=== PATIENT | female | born 1950 | race Native Hawaiian/Other Pacific Islander ===

== ENCOUNTER 2016-12-23 09:15 | Emergency (ER) | payer OTHER, MEDICAID ==
[~2016-12-23] VITALS: Ht 160 cm; Wt 63.5 kg
[2016-12-23 09:16] VITALS: BP 179/82; PULSE 70; RESP 20; TEMP 98.6; O2SAT 98
[2016-12-23] MEDS ORDERED: METF1000 PO (09:42)
--- NOTE | 2016-12-23 09:43 | PD ---
HPI Chief Complaint: Fall Time Seen by Provider: 09:38 Travel History International Travel<30 days: No Contact w/Intl Traveler<30days: No Traveled to known affect area: No History of Present Illness HPI The patient is a 65-year-old female who presents to the emergency department after a trip and fall. The patient states she was running to the bus stop earlier today, when she tripped over uneven pavement and subsequent fell on the hard pavement. The patient complains of pain located over the interphalangeal joint of the thumb, lateral malleus of the left ankle, and an abrasion of the anterior aspect of the right knee. The patient is able to bear weight, but has pain with weightbearing of the left ankle and right knee. She does note previous bilateral knee replacements. Patient is unsure when her last tetanus shot was updated. The patient denies a loss of consciousness, head pain, neck pain, chest pain, palpitations, shortness breath , nausea, vomiting, or syncope. PFSH Past Medical History Narrative Medical Hypertension, hyperlipidemia, diabetes Diabetes: Yes Past Surgical History Narrative Surgical Bilateral knee surgeries Social History Tobacco Use: Yes Allergies-Medications (Allergen,Severity, Reaction): Coded Allergies: Codeine (Verified Allergy, Severe, Nausea/Vomiting, 12/23/16) Darvocet-N 100 (Verified Allergy, Severe, Nausea/Vomiting, 12/23/16) Lortab (Verified Allergy, Severe, Nausea/Vomiting, 12/23/16) Reported Meds & Prescriptions Reported Meds & Active Scripts Active Reported Lisinopril 5 Mg Tab 5 Mg PO DAILY Losartan (Losartan Potassium) 25 Mg Tab 25 Mg PO DAILY Metformin (Metformin HCl) 1,000 Mg Tab 1,000 Mg PO BIDPC With meals Review of Systems Except as stated in HPI: all other systems reviewed are Neg General / Constitutional: No: Fever Eyes: No: Visual changes HENT: No: Headaches, Neck Pain Cardiovascular: No: Chest Pain or Discomfort, Palpitations, Syncope Respiratory: No: Shortness of Breath Gastrointestinal: No: Nausea, Vomiting, Abdominal Pain Musculoskeletal: Positive: Pain Skin: Positive Other (abrasion) Neurologic: No: Dizziness Physical Exam Narrative GENERAL: Awake, alert, very pleasant 65-year-old female who appears her stated age and is in no acute respiratory distress. SKIN: Focused skin assessment warm/dry. Abrasion over the anterior aspect of the right knee. Well-healed midline scar over the left and right knee. Superficial abrasion over the extensor surface of the interphalangeal joint of the left thumb. HEAD: Atraumatic. Normocephalic. EYES: Pupils equal and round. No scleral icterus. No injection or drainage. ENT: No injection or drainage. NECK: Trachea midline. No JVD. MUSCULOSKELETAL: Well-healed scar over the midline and left and right knee. Superficial abrasion measuring 1.5 cm in diameter over the extensor surface of the right knee. Patient is able flex and extend the knees bilaterally 90, she is able to bear weight on both legs. Mild edema over the lateral left malleus with minimal tenderness. No tenderness of the base of the fourth and fifth metatarsal. Superficial abrasion noted over the extensor surface of the interphalangeal joint of the left thumb. Intrinsic hand muscles are intact the left and right hand. Patient is able fully flex and extend the left and right wrist as well as supinate and pronate the forearms bilaterally. No tenderness of the clavicle. Positive radial pulses bilaterally. There is palpation of the interphalangeal joint of the left thumb. NEUROLOGICAL: Awake and alert. No obvious cranial nerve deficits. Motor grossly within normal limits. Normal speech. Nonfocal. Oriented 4. Follows commands without difficulty. PSYCHIATRIC: Appropriate mood and affect; insight and judgment normal. Data Data Last Documented VS Vital Signs Date Time Temp Pulse Resp B/P Pulse Ox O2 Delivery O2 Flow Rate FiO2 12/23/16 09:16 98.6 70 20 179/82 98 Room Air Orders Tetanus/Diphtheria Tox Adult (Tetanus/Di (12/23/16 09:45) Acetaminophen (Tylenol) (12/23/16 09:45) Finger (Vqg1otf) (12/23/16 ) Knee, Ltd (1 Or 2vws) (12/23/16 ) Ankle, Limited (Ap&Lat) (12/23/16 ) MDM Medical Decision Making Medical Screen Exam Complete: Yes Emergency Medical Condition: Yes Medical Record Reviewed: Yes Interpretation(s) Last Impressions Knee X-Ray 12/23/16 0000 Signed Impressions: Service Date/Time: Friday, December 23, 2016 10:14 - CONCLUSION: Small joint effusion. Otherwise, no acute abnormality. Colin David Jr., MD Ankle X-Ray 12/23/16 0000 Signed Impressions: Service Date/Time: Friday, December 23, 2016 10:15 - CONCLUSION: There is a linear lucency seen involving the navicular bone along its dorsal aspect. I cannot completely exclude a small avulsion fracture off the dorsum. Clinical evaluation for any point tenderness in this area suggested. Otherwise, degenerative changes. Colin David Jr., MD X-ray of the thumb reveals a moderately displaced primarily transverse fracture involving the thumb distal phalanx in the proximal diaphyseal region with very slight palmar displacement of the dominant distal fragment. The interphalangeal joint appears intact. At the metacarpal phalangeal joint an epiphyseal fracture extends to the palmar aspect of the joint space. Minimal displacement of the tiny minor fragment. Differential Diagnosis Differential diagnosis includes mechanical fall, fracture, dislocation, contusion, hematoma, sprain, strain, abrasion, laceration. Narrative Course Limited x-ray of the right knee, left ankle, and left thumb were obtained. The patient's tetanus shot was updated. The patient was administered Tylenol orally for pain. X-ray of the left thumb is positive for 2 fractures, therefore , patient was placed in a thumb spica. Patient has an avulsion fracture over the dorsal aspect of the right foot, therefore, was placed in a short posterior leg splint. The patient will be provided crutches with her splint, Motrin as needed for pain, and is advised to elevate, ice, and activity as tolerated. Patient is advised to follow-up with orthopedics. Diagnosis Primary Impression: Fracture of thumb, left, closed Qualified Code: S62.502A - Closed displaced fracture of phalanx of left thumb , unspecified phalanx, initial encounter Additional Impression: Foot, fracture, navicular Qualified Code: S92.255A - Closed nondisplaced fracture of navicular bone of left foot, initial encounter Patient Instructions: General Instructions Additional Instructions: Wound care instructions. Clean the abrasions twice a day with soap and water, monitor for signs of infection. Tylenol and/or Motrin as needed for pain. Elevate, ice, activity as tolerated. Splints as directed. Follow-up with orthopedics. Med/Other Pt SpecificInfo: Prescription(s) given Scripts Ibuprofen 600 Mg Set993 Mg PO Q6H PRN (Pain/Inflammation) #20 TAB Ref 0 Prov:Evangelist Jennings MD 12/23/16 Disposition: 01 DISCHARGE HOME Condition: Stable Evangelist Jennings MD December 23, 2016 09:43
[2016-12-23] MEDS ORDERED: LISI-519 PO (09:44)
[2016-12-23] MEDS ORDERED: LOSA25TA PO (09:44)
[2016-12-23] MEDS ORDERED: ACETAMINOPHEN 325 MG TAB PO ONE (09:45)
[2016-12-23] MEDS ORDERED: TETANUS/DIPHTHERIA TOXOID ADULT 0.5 ML VIAL IM ONE (09:45)
--- NOTE | 2016-12-23 10:27 | RADRPT ---
EXAM DATE/TIME: 12/23/2016 10:14 [facility] COMPARISON: No previous studies available for comparison. INDICATIONS : Patient states she fell this morning, right knee pain. MEDICAL HISTORY : None. SURGICAL HISTORY : Total knee replacement, right. ENCOUNTER: Initial ACUITY: 1 day PAIN SCORE: 4/10 LOCATION: Right Knee FINDINGS: 2 views of the knee show a total knee prosthesis in good position. No fracture or dislocation is obse rved. No soft tissue swelling is noted. A small joint effusion is seen. CONCLUSION: Small joint effusion. Otherwise, no acute abnormality. Colin David Jr., MD on December 23, 2016 at 10:23 Board Certified Radiologist. This report was verified electronically.
--- NOTE | 2016-12-23 10:32 | RADRPT ---
EXAM DATE/TIME: 12/23/2016 10:15 [facility] COMPARISON: No previous studies available for comparison. INDICATIONS : Patient states she fell this morning, left ankle pain. MEDICAL HISTORY : None. SURGICAL HISTORY : None. ENCOUNTER: Initial ACUITY: 1 day PAIN SCORE: 4/10 LOCATION: Left Ankle FINDINGS: 2 views of the ankle reveal a linear lucency involving the dorsum of the navicular bone. This is only seen on the lateral projection. Degenerative changes are noted within the midfoot. The remaining bon y structures are unremarkable. Spurring of the calcaneus. No soft tissue swelling. CONCLUSION: There is a linear lucency seen involving the navicular bone along its dorsal aspect. I cannot complet misty exclude a small avulsion fracture off the dorsum. Clinical evaluation for any point tenderness in this area suggested. Otherwise, degenerative changes. Colin David Jr., MD on December 23, 2016 at 10:25 Board Certified Radiologist. This report was verified electronically.
--- NOTE | 2016-12-23 10:42 | RADRPT ---
EXAM DATE/TIME: 12/23/2016 10:05 [facility] COMPARISON: No previous studies available for comparison. INDICATIONS : Patient states she fell this morning, left thumb pain. MEDICAL HISTORY : None. SURGICAL HISTORY : None. ENCOUNTER: Initial ACUITY: 1 day PAIN SCORE: 10/10 LOCATION: Left Hand, 1st Digit FINDINGS: There is a moderately displaced primarily transverse fracture involving the thumb distal phalanx in t he proximal diaphyseal region with very slight palmar displacement of the dominant distal fragment. T he interphalangeal joint appears intact. At the metacarpal phalangeal joint, and epiphyseal fracture extends into the palmar aspect of the joint space. Minimal displacement of the tiny minor fragment. CONCLUSION: Thumb fractures as above Duong Lerner MD on December 23, 2016 at 10:37 Board Certified Radiologist. This report was verified electronically.
[2016-12-23] MEDS ORDERED: IBUP-232 PO (10:49)
[2016-12-23 11:14] VITALS: RESP 17
[2016-12-23] MEDS ORDERED: GETGO ROLLING W1 MI1 (11:16)
== END 2016-12-23 11:30 | disposition home or self-care (01) ==
LOC: NEPD 09:15
DX: S62.502A Fracture of unspecified phalanx of left thumb, initial encounter for closed fracture (principal); S92.255A Nondisplaced fracture of navicular [scaphoid] of left foot, initial encounter for closed fracture; S80.211A Abrasion, right knee, initial encounter; W01.0XXA Fall on same level from slipping, tripping and stumbling without subsequent striking against object, initial encounter; Y93.01 Activity, walking, marching and hiking; Y92.480 Sidewalk as the place of occurrence of the external cause; Z23 Encounter for immunization; E11.9 Type 2 diabetes mellitus without complications; I10 Essential (primary) hypertension
CPT/HCPCS: 29515; 73140; 73560; 73600; 90471; 90714; 99284; L3808